=== PATIENT | male | born 1985 | race Caucasian/White ===

== ENCOUNTER 2021-11-07 15:11 | Emergency (ER) | payer MEDICARE, OTHER ==
[2021-11-07] MEDS ORDERED: KEFLEX250 MG PO (16:22)
[2021-11-07] MEDS ORDERED: BACTROBAN NASAL1 GM (16:22)
== END 2021-11-07 16:50 | disposition home or self-care (01) ==
LOC: FER 15:11
DX: S01.01XA Laceration without foreign body of scalp, initial encounter (principal); W22.8XXA Striking against or struck by other objects, initial encounter; Y92.89 Other specified places as the place of occurrence of the external cause; Y99.0 Civilian activity done for income or pay
CPT/HCPCS: 70450